=== PATIENT | female | born 1965 | race American Indian/Alaskan Native ===

== ENCOUNTER 2016-11-23 17:49 | Emergency (ER) | payer SELFPAY ==
--- NOTE | 2016-11-23 19:05 | Emergency Department Report ---
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 Patient called 911 and EMS arrived and gave her Benadryl, epinephrine and something additional although she wasn't sure what this was. On my evaluation she states that all her symptoms have resolved. Denies fevers chills nausea vomiting. Otherwise no complaints. MD Complaint: allergic reaction -: Sudden Exposure: food Symptoms: itching, facial swelling, difficulty breathing Severity: moderate Treatment Prior to Arrival: benadryl, epinephrine, bronchodilator Previous Allergy History: none - Related Data Previous Rx's Medication Instructions Recorded Last Taken Type EPINEPHrine [Epipen 2-Calos] 0.3 mg IM ONCE PRN #1 ml 11/23/16 Unknown Rx Famotidine [Pepcid] 20 mg PO BID #10 tablet 11/23/16 Unknown Rx diphenhydrAMINE [Benadryl CAP] 25 mg PO Q6HR PRN #30 capsule 11/23/16 Unknown Rx predniSONE [Deltasone] 20 mg PO QDAY #8 tab 11/23/16 Unknown Rx Allergies Allergy/AdvReac Type Severity Reaction Status Date / Time bronwyn Allergy Shortness Verified 11/23/16 18:15 of Breath amoxicillin AdvReac Hives Verified 11/23/16 18:16 ED Review of Systems ROS: Stated complaint: ALLERGIC REACTION Other details as noted in HPI Comment: All other systems reviewed and negative Constitutional: denies: chills, fever Eyes: denies: eye pain, eye discharge, vision change ENT: denies: ear pain, throat pain Respiratory: denies: cough, shortness of breath, wheezing Cardiovascular: denies: chest pain, palpitations Endocrine: no symptoms reported Gastrointestinal: denies: abdominal pain, nausea, diarrhea Genitourinary: denies: urgency, dysuria, discharge Musculoskeletal: denies: back pain, joint swelling, arthralgia Skin: denies: rash, lesions Neurological: denies: headache, weakness, paresthesias Psychiatric: denies: anxiety, depression Hematological/Lymphatic: denies: easy bleeding, easy bruising ED Past Medical Hx - Past Medical History Previous Medical History?: Yes Hx Asthma: Yes - Surgical History Additional Surgical History: partial colon resection - Family History Family history: no significant - Social History Smoking Status: Current Every Day Smoker Substance Use Type: Marijuana - Medications Home Medications: Home Medications Medication Instructions Recorded Confirmed Last Taken Type EPINEPHrine [Epipen 2-Claos] 0.3 mg IM ONCE PRN #1 ml 11/23/16 Unknown Rx Famotidine [Pepcid] 20 mg PO BID #10 tablet 11/23/16 Unknown Rx diphenhydrAMINE [Benadryl CAP] 25 mg PO Q6HR PRN #30 capsule 11/23/16 Unknown Rx predniSONE [Deltasone] 20 mg PO QDAY #8 tab 11/23/16 Unknown Rx ED Physical Exam - General Limitations: No Limitations General appearance: alert, in no apparent distress - Head Head exam: Present: atraumatic, normocephalic - Eye Eye exam: Present: normal appearance - ENT ENT exam: Present: mucous membranes moist - Neck Neck exam: Present: normal inspection - Respiratory Respiratory exam: Present: normal lung sounds bilaterally. Absent: respiratory distress, wheezes, rales - Cardiovascular Cardiovascular Exam: Present: normal rhythm, tachycardia, normal heart sounds. Absent: systolic murmur, diastolic murmur, rubs, gallop - GI/Abdominal GI/Abdominal exam: Present: soft, normal bowel sounds. Absent: distended, tenderness, guarding - Extremities Exam Extremities exam: Present: normal inspection - Back Exam Back exam: Present: normal inspection - Neurological Exam Neurological exam: Present: alert, oriented X3 - Psychiatric Psychiatric exam: Present: normal affect, normal mood - Skin Skin exam: Present: warm, dry, intact, normal color. Absent: rash ED Course Vital Signs 11/23/16 11/23/16 17:59 19:41 Temperature 97.7 F 97.8 F Pulse Rate 92 H 100 H Respiratory 20 Rate Blood Pressure 128/74 Blood Pressure 113/68 [Left] O2 Sat by Pulse 100 100 Oximetry ED Medical Decision Making - Medical Decision Making 51-year-old female here with complaint of allergic reaction. Patient received epinephrine by EMS. Plan to observe the patient for 4 hours. Her symptoms have currently resolved. Plan to give her a dose of Decadron and Pepcid here in the emergency department. Discharge patient home with EpiPen and steroids and H2 xiao and Benadryl. Portions of this chart were dictated with dictation software. There may be dictation errors contained within this note. Critical care attestation.: If time is entered above; I have spent that time in minutes in the direct care of this critically ill patient, excluding procedure time. ED Disposition Clinical Impression: Allergic reaction, Anaphylaxis Disposition: - TO HOME OR SELFCARE Is pt being admited?: No Condition: Stable Instructions: Food Allergy (ED), Anaphylaxis (ED) Additional Instructions: Please follow up with an merchandise stocker Prescriptions: diphenhydrAMINE [Benadryl CAP] 25 mg PO Q6HR PRN #30 capsule PRN Reason: Allergic Reaction EPINEPHrine [Epipen 2-Calos] 0.3 mg IM ONCE PRN #1 ml PRN Reason: Allergic Reaction Famotidine [Pepcid] 20 mg PO BID #10 tablet predniSONE [Deltasone] 20 mg PO QDAY #8 tab Referrals: PRIMARY CARE,MD [Primary Care Provider] - 3-5 Days
[2016-11-23] MEDS ORDERED: DECADRON IV ONE (19:10)
[2016-11-23] MEDS ORDERED: PEPCID IV ONE (19:14)
[2016-11-23 19:42] VITALS: BP 113/68
== END 2016-11-23 22:28 | disposition home or self-care (01) ==
LOC: ED 17:49
DX: T78.2XXA Anaphylactic shock, unspecified, initial encounter (principal); J45.909 Unspecified asthma, uncomplicated; F17.200 Nicotine dependence, unspecified, uncomplicated; F12.10 Cannabis abuse, uncomplicated; Z88.1 Allergy status to other antibiotic agents; Z91.018 Allergy to other foods
CPT/HCPCS: 96374; 96375; 99283; J1100